=== PATIENT | male | born 1970 | race Caucasian/White ===

== ENCOUNTER 2019-11-19 13:42 | Inpatient (IN) | payer OTHER ==
[2019-11-19] MEDS ORDERED: Ondansetron INJ* 2 MG/ML VIAL IV ONE (14:05)
--- NOTE | 2019-11-19 14:08 | ED ---
HPI Diabetic - HPI Summary HPI Summary: This patient is a 49 y/o male presenting to [facility] via EMS from [facility] for nausea and vomiting. Patient is a type 1 diabetic who injects Insulin. He states for the past 2 days he has been having nausea and vomiting. Patient notes he has been unable to keep anything down, even water. Denies any other complaints. Denies fever, chest pain, shortness of breath. Per nurse's note, " Pt states his sugar have been low in the am, he would eat, and then be in 400s in afternoon." PMHx: type 1 DM, seizure. Patient has taken his seizure medications today, Keppra and Vimpat. Denies tobacco, alcohol, and drug use. Home Medications Medication Instructions Recorded Confirmed Type Insulin GLARGINE(*) [Lantus 100 26 units SUBCUT QAM 11/19/19 11/19/19 History units/ml 10 ml VIAL (*)] Insulin LISPRO* [HumaLOG 100 6 units SUBCUT .EVERY AFTERNOON 11/19/19 11/19/19 History units/ml 3 ml VIAL *] Insulin LISPRO* [HumaLOG 100 10 units SUBCUT QAM 11/19/19 11/19/19 History units/ml 3 ml VIAL *] Lacosamide TAB* [Vimpat TAB*] 200 mg PO BID 11/19/19 11/19/19 History Levetiracetam XR TAB(NF) [Keppra 1,500 mg PO BID 11/19/19 11/19/19 History XR (NF)] - History Of Current Complaint Chief Complaint: EDDiabeticProb Time Seen by Provider: 11/19/19 13:54 Hx Obtained From: Patient Onset/Duration: Lasting Days, Still Present Timing: Days Severity Currently: Moderate Character: Alert Aggravating: Nothing Alleviating: Nothing Associated Signs & Symptoms: Nausea, Vomiting Related History: Compliant, DM I, Insulin Requiring - Allergies/Home Medications Allergies/Adverse Reactions: Allergies Allergy/AdvReac Type Severity Reaction Status Date / Time No Known Allergies Allergy Verified 11/19/19 13:52 Home Medications: Home Medications Insulin GLARGINE(*) [Lantus 100 units/ml 10 ml VIAL (*)] 26 units SUBCUT QAM 11/08 [History Confirmed 11/19/19] Insulin LISPRO* [HumaLOG 100 units/ml 3 ml VIAL *] 6 units SUBCUT .EVERY AFTERNOON 11/19/19 [History Confirmed 11/19/19] Insulin LISPRO* [HumaLOG 100 units/ml 3 ml VIAL *] 10 units SUBCUT QAM 11/19/19 [History Confirmed 11/19/19] Lacosamide TAB* [Vimpat TAB*] 200 mg PO BID 11/19/19 [History Confirmed 11/19/19 ] Levetiracetam XR TAB(NF) [Keppra XR (NF)] 1,500 mg PO BID 11/19/19 [History Confirmed 11/19/19] PMH/Surg Hx/FS Hx/Imm Hx Endocrine/Hematology History: Reports: Hx Diabetes - Type 1 Neurological History: Reports: Hx Seizures Infectious Disease History: No Infectious Disease History: Denies: Traveled Outside the [place] in Last 30 Days - Family History Known Family History: Negative: Cardiac Disease - Social History Alcohol Use: None Substance Use Type: Reports: Marijuana Substance Use Comment - Amount & Last Used: last used 13 years ago Smoking Status (MU): Never Smoked Tobacco Review of Systems Negative: Fever Negative: Chest Pain Negative: Shortness Of Breath Positive: Vomiting, Nausea Neurological/Mental Status: Negative All Other Systems Reviewed And Are Negative: Yes Physical Exam - Summary Physical Exam Summary: VITAL SIGNS: Reviewed. GENERAL: Patient is a well-developed and nourished male who is lying comfortable in the stretcher. Patient is not in any acute respiratory distress. Patient appears dehydrated. HEAD AND FACE: No signs of trauma. No ecchymosis, hematomas or skull depressions. No sinus tenderness. EYES: PERRLA, EOMI x 2, No injected conjunctiva, no nystagmus. EARS: Hearing grossly intact. Ear canals and tympanic membranes are within normal limits. MOUTH: Oropharynx within normal limits. NECK: Supple, trachea is midline, no adenopathy, no JVD, no carotid bruit, no c- spine tenderness, neck with full ROM. CHEST: Symmetric, no tenderness at palpation LUNGS: Clear to auscultation bilaterally. No wheezing or crackles. CVS: Regular rate and rhythm, S1 and S2 present, no murmurs or gallops appreciated. ABDOMEN: Soft, non-tender. No signs of distention. No rebound, no guarding, and no masses palpated. Bowel sounds are normal. EXTREMITIES: FROM in all major joints, no edema, no cyanosis or clubbing. NEURO: Alert and oriented x 3. No acute neurological deficits. Speech is normal and follows commands. SKIN: Dry and warm Triage Information Reviewed: Yes Vital Signs On Initial Exam: Initial Vitals Pulse Pulse Ox 117 97 11/19/19 13:48 11/19/19 13:48 Vital Signs Reviewed: Yes Procedures - Sedation Patient Received Moderate/Deep Sedation with Procedure: No Diagnostics - Vital Signs Vital Signs Temp Pulse Resp BP Pulse Ox 11/19/19 13:49 99.8 F 112 20 126/82 99 11/19/19 13:48 117 97 - Laboratory Result Diagrams: 11/19/19 14:29 11/19/19 17:21 Lab Statement: Any lab studies that have been ordered have been reviewed, and results considered in the medical decision making process. Diabetic Course/Dx - Course Assessment/Plan: This patient is a 49 y/o male presenting to [facility] via EMS from [facility] for nausea and vomiting. Patient is a type 1 diabetic who injects Insulin. He states for the past 2 days he has been having nausea and vomiting. Patient notes he has been unable to keep anything down, even water. Denies any other complaints. Denies fever, chest pain, shortness of breath. Per nurse's note, "Pt states his sugar have been low in the am, he would eat, and then be in 400s in afternoon.". PMHx: type 1 DM, seizure. Patient has taken his seizure medications today, Keppra and Vimpat. Denies tobacco, alcohol, and drug use. In the ED course the patient was placed in a compliance monitor, IV access was obtained, IV fluids started. He was given 2 liter of Ns. Past medical records reviewed. Blood test w/o a significant abnormality except for WHITE BLOOD CELL COUNT OF 16, SODIUM 131, POTASSIUM 6, CHLORIDE 91, CARBON DIOXIDE IS 9, ANION GAP IS 31, BUN IS 37, CREATININE 1.38, GLUCOSE 545, LACTIC ACID IS 3.2. CRP IS 15.24. VBG: Ph is 7.13, and PCO2 28. Patient was started on insulin drip. The patient was given an additional liter of NS. Patient also was given Zofran for nausea and vomiting. At this time I discussed my physical exam and findings with Dr. Richardson from the ICU services who accepted the patient for admission. - Diagnoses Differential Dx: Diabetic Ketoacidosis, Hyperglycemia Provider Diagnoses: DKA, type 1 - Physician Notifications Discussed Care Of Patient With: Fermín Richardson - fabric cutter Time Discussed With Above Provider: 15:24 Instructed by Provider To: Admit As Inpatient - Critical Care Time Critical Care Time: 75-104 min Discharge ED - Sign-Out/Discharge Documenting (check all that apply): Patient Departure - Admit to [facility] [place] - Discharge Plan Condition: Stable Disposition: ADMITTED TO [facility] - Billing Disposition and Condition Condition: STABLE Disposition: Admitted to [facility] - Attestation Statements Document Initiated by Ninfaibjessica: Yes Documenting Scribe: Gris Alvarado Provider For Whom Mando is Documenting (Include Credential): Norbert Yoder MD Scribe Attestation: IGris, scribed for Norbert Yoder MD on 11/19/19 at 2054. Scribe Documentation Reviewed: Yes Provider Attestation: The documentation as recorded by the Gris rodriguez accurately reflects the service I personally performed and the decisions made by me, Norbert Yoder MD Status of Scribe Document: Viewed
[2019-11-19 14:43] LABS: ABS Lymphocytes 0.3 10^3/ul (1.0-4.8); ABS Monocytes 0.6 10^3/ul (0-0.8); Hematocrit 46 % (42-52); Lymphocyte % 2.1 %; Mean Corpuscular HGB Conc 33 g/dL (31-36); Mean Corpuscular Hemoglobin 31 pg (27-31); Mean Corpuscular Volume 94 fL (80-94); Mean Platelet Volume 9.6 fL (7.4-10.4); Platelet Count 314 10^3/uL (150-450); Red Blood Count 4.87 10^6 /uL (4.18-5.48); Red Cell Distribution Width 13 % (10-15)
[2019-11-19 14:58] LABS: Alcohol < 10 mg/dL (<10)
[2019-11-19 15:06] LABS: ALT 50 U/L (7-52); AST 35 U/L (13-39); Albumin 4.5 g/dL (3.2-5.2); Albumin/Globulin Ratio 1.4 (1-3); Alkaline Phosphatase 88 U/L (34-104); BUN/Creatinine Ratio 26.8 (8-20); Blood Urea Nitrogen 37 mg/dL (6-24); C Reactive Protein 15.24 mg/L (<8.01); Calcium 10.2 mg/dL (8.6-10.3); Chloride 91 mmol/L (101-111); Creatine Kinase 157 U/L (10-223); EGFR African American 66.3 (>60); EGFR Non-African American 54.8 (>60); Globulin 3.3 g/dL (2-4); Magnesium 2.1 mg/dL (1.9-2.7); Sodium 131 mmol/L (135-145); Total Protein 7.8 g/dL (6.4-8.9)
[2019-11-19 15:07] LABS: Anion Gap 31 mmol/L (2-11); CO2 Carbon Dioxide 9 mmol/L (22-32); Glucose 545 mg/dL (70-100)
[2019-11-19] MEDS: NS 0.9% 1000 ML** 2,000 ML IV ONE (15:14)
[2019-11-19] MEDS ORDERED: NS 0.9% 1000 ML** 1,000 ML IV ONE (15:20)
[2019-11-19 15:43] LABS: Urine Appearance Clear; Urine Bilirubin Negative (Negative); Urine Blood Negative (Negative); Urine Color Yellow; Urine Glucose 3+(>=500 mg/dL) (Negative); Urine Ketones 2+ (Negative); Urine Nitrite Negative (Negative); Urine Protein Negative (Negative); Urine Urobilinogen Negative (Negative)
[2019-11-19] MEDS ORDERED: Insulin Infusion 100unit/100mL 100 UNIT/100 ML BAG IV SCH (16:00)
[2019-11-19 16:36] LABS: Urine Benzodiazepine Screen None Detected (None Detect); Urine Opiates Screen None Detected (None Detect)
[2019-11-19] MEDS: Insulin Infusion 100unit/100mL 100 UNIT/100 ML BAG IV SCH (17:13)
[2019-11-19] MEDS ORDERED: NS 0.9% 1000 ML** 1,000 ML IV SCH (17:30)
[2019-11-19 18:11] LABS: Glucose Confirmatory 455 mg/dL (70-100)
[2019-11-19 18:31] LABS: BUN/Creatinine Ratio 28.1 (8-20); Blood Urea Nitrogen 34 mg/dL (6-24); Calcium 8.3 mg/dL (8.6-10.3); Chloride 103 mmol/L (101-111); EGFR African American 77.1 (>60); EGFR Non-African American 63.7 (>60); Sodium 136 mmol/L (135-145)
[2019-11-19 18:33] LABS: CO2 Carbon Dioxide < 7 mmol/L (22-32); Potassium 5.3 mmol/L (3.5-5.0)
--- NOTE | 2019-11-19 19:23 | HP ---
CRITICAL CARE ADMISSION NOTE: DATE OF ADMISSION: 11/19/19 HISTORY OF PRESENT ILLNESS: The patient is a 49-year-old male with past medical history of insulin-dependent diabetes and seizures, who presents to the emergency department with nausea and vomiting. He was found to be in diabetic ketoacidosis. ICU consultation was requested for his further workup and management at admission. On my arrival at the bedside, he is fairly comfortable. He has some mild ongoing nausea but is not actively vomiting. He has already received some insulin and a fair amount of fluid. He denies any localizing infection. Denies dysuria. Denies urethral discharge. Denies productive cough, fever, or chills. He reports he has been compliant with his diabetes regimen but as I asked him to describe it completely, it sounds like he may be under-replaced. PAST MEDICAL HISTORY: Significant for insulin-dependent diabetes and seizures. MEDICATIONS: Medication list includes: 1. Lantus 26 units q.a.m., 6 units of lispro every afternoon, 10 units of lispro in the morning. 2. Vimpat 200 mg p.o. b.i.d. 3. Keppra 1500 mg p.o. b.i.d. ALLERGIES: He denies any drug allergies. FAMILY HISTORY: He reports is negative for cardiac disease. SOCIAL HISTORY: He is currently incarcerated, not actively smoking or drinking. He was a remote drug user. He denies a history of hepatitis. REVIEW OF SYSTEMS: Detailed in the HPI. Additionally, he denies focal motor weakness, visual change, headache or neck stiffness. Denies hemoptysis or hematemesis. Denies diarrhea. Denies travel outside the [place] in the last 30 days. PHYSICAL EXAMINATION GENERAL: He is a well-developed, slight build white male, in no acute distress. VITAL SIGNS: Temperature of 99.8 degrees, heart rate of 110, respiratory rate of 20, blood pressure 126/80, saturating 99% on room air. HEENT: Normocephalic, atraumatic. Pupils equal, reactive to light. NECK: Supple, nontender, without JVD. LUNGS: Clear. HEART: S1, S2. Regular. ABDOMEN: Soft, nontender, nondistended. Positive bowel sounds. EXTREMITIES: Lower extremities are without edema. NEUROLOGIC: Alert and oriented and grossly nonfocal. LABORATORY DATA: Laboratory evaluation is revealing white blood cell count of 16, hemoglobin of 15, platelet count of 314. Serum sodium 131, potassium 6, chloride 91, bicarb 9, BUN and creatinine 37/1.38, with glucose of 545. Lactic acid of 3.2. Venous pH is 7.13. ASSESSMENT AND PLAN: This is a 49-year-old male with apparent diabetic ketoacidosis. He has no obvious precipitant, which leads me to compliance as the likely source. He is receiving appropriate crystalloid, we will add an insulin drip. We will perform serial screening of his anion gap which is currently 31, and I am hoping we can close that gap over the next 12 to 24 hours that he might be able to be discharged as soon as tomorrow. We will need to try and verify a little bit better whether he is actually taking the medications as prescribed because if he is, he may in fact need a dose adjustment. These all have been discussed in detail with the patient. He voiced understanding and appreciation for the care. TIME SPENT: The aggregate time providing critical care as well as personally interpreting multiple laboratory evaluations, reviewing the medical records, and discussing the case with other physicians including the attending in the ED Dr. Yoder has thus far exceeded 35 minutes. [id number]/[facility] #: [id number] UNITED HEALTH SERVICESClaudine
[2019-11-19] MEDS: D5NS 0.9% 1000 ML BAG* 1,000 ML IV SCH (21:25)
[2019-11-19 23:10] LABS: BUN/Creatinine Ratio 22.3 (8-20); Calcium 7.9 mg/dL (8.6-10.3); EGFR African American 84.3 (>60); EGFR Non-African American 69.7 (>60); Potassium 4.1 mmol/L (3.5-5.0)
[2019-11-19] MEDS: Heparin VIAL(*) 5000 UNITS/ML VIAL (FIVE THOUSAND) SUBCUT SCH (23:16)
[2019-11-19] MEDS: Lacosamide TAB* 100 MG TAB PO SCH (23:16)
[2019-11-19] MEDS: CMCS: Levetiracetam XR TAB(NF) 750 MG TAB.XR PO SCH (23:16)
[2019-11-20] MEDS: D5NS 0.9% 1000 ML BAG* 1,000 ML IV SCH (02:34)
[2019-11-20 03:09] LABS: BUN/Creatinine Ratio 19.6 (8-20); Calcium 7.8 mg/dL (8.6-10.3); EGFR African American 99.5 (>60); EGFR Non-African American 82.3 (>60); Potassium 3.5 mmol/L (3.5-5.0)
[2019-11-20] MEDS ORDERED: Insulin GLARGINE(*) 1 UNITS UNIT SUBCUT ONE (04:00)
[2019-11-20] MEDS: Insulin Infusion 100unit/100mL 100 UNIT/100 ML BAG IV SCH (04:26)
[2019-11-20] MEDS: Heparin VIAL(*) 5000 UNITS/ML VIAL (FIVE THOUSAND) SUBCUT SCH (05:04)
[2019-11-20] MEDS ORDERED: Dextrose 50% Syringe 50 ML* 25 GM/50 ML SYRINGE IV PUSH PRN (06:01)
[2019-11-20 07:02] LABS: BUN/Creatinine Ratio 16.8 (8-20); Calcium 7.7 mg/dL (8.6-10.3); EGFR Non-African American 78.5 (>60); Potassium 3.5 mmol/L (3.5-5.0)
[2019-11-20] MEDS: Insulin LISPRO* 1 UNITS UNIT SUBCUT SCH ×2 (07:45→12:09)
[2019-11-20] MEDS: CMCS: Levetiracetam XR TAB(NF) 750 MG TAB.XR PO SCH (10:28)
[2019-11-20] MEDS: Lacosamide TAB* 100 MG TAB PO SCH (10:28)
--- NOTE | 2019-11-20 12:07 | DS ---
DATE OF ADMISSION: 11/19/2019. DATE OF DISCHARGE: 11/20/2019. ATTENDING PHYSICIAN: Dr. Fermín Richardson * (dictated by Consuelo Mancia NP). PRIMARY CARE PHYSICIAN: Clinic at [facility]. REASON FOR ADMISSION: Vomiting times two days and hyperglycemia. HOSPITAL COURSE: Please refer to admitting history and physical on 11/19/[address] Fermín Richardson. In short, Mr. Edwards is a 49-year-old male patient who presented from custody at [facility] for complaints of hyperglycemia with nausea and vomiting times two days. The patient states that he did not have any further symptoms of upper respiratory infection or fever. The patient states that he is a type 1 diabetic and did understand that he may be in DKA. Upon arrival in the emergency department, he was found to have a markedly elevated sugar. He did have an anion gap which was 31. He was hyperkalemic and hyponatremic. At the time of admission, he was also found to be dehydrated secondary to diabetic ketoacidosis. He was admitted to the ICU for insulin drip protocol. He responded favorably to fluid resuscitation, receiving 3 liters of normal saline initially in the emergency department and was started on insulin drip at 0.1 units/kg per hour. The patient had BMP's check every four hours. The patient's GAP closed on his lab check at 2:45 in the morning. Insulin drip was stopped. The patient was maintained on IV fluids. Sugar has been normalized to around the 200 range by approximately 6: 00 a.m. this morning. He was started on his home regimen of glargine and lispro. He was tolerating meals. He did not exhibit any symptoms of nausea, vomiting, or diarrhea. The rest of his electrolytes subsequently corrected. The patient also did not exhibit any fevers or any other infectious symptoms. It should also be noted that the patient does have a history of seizure disorder. He was continued on his seizure medications which are Keppra and Vimpat. He did not exhibit any seizure activity during this stay. On the morning of 11/20/2019, the patient was feeling back to baseline. Again, his labs have normalized. His DKA has resolved and the patient will be discharged back to the custody of [facility]. There were no changes made to his medical regimen. He should follow-up at the clinic. DISPOSITION: The patient will be [facility] back [facility]. FOLLOW-UP: He should follow-up with clinic RN and medical staff. If the patient does not have a primary care provider in the community, he can be referred to the [facility] after he is no longer in custody. The patient should [facility] while he is still incarcerated. DISCHARGE MEDICATIONS: 1. Vimpat 200 mg one tablet p.o. b.i.d. 2. Keppra XR 1500 mg one tablet p.o. b.i.d. 3. Glargine 26 units subcutaneously daily. 4. Lispro 6 units subcutaneous in the afternoon and 10 units subcutaneous in the morning. REVIEW OF SYSTEMS ON THE DAY OF DISCHARGE: The patient denies any fever, fatigue, or chills. No general weakness. No cough. No shortness of breath, no chest pain. No nausea, vomiting, or diarrhea. No abdominal pain. No urinary complaints. No arthralgias or myalgias. No further constitutional complaints. PHYSICAL EXAMINATION: General: The patient is awake and alert, in general well - appearing. Vital Signs: Blood pressure 100/59, heart rate 90, respiratory rate 15, O2 saturation 95 percent on room air with a temperature of 98.4. HEENT : The patient is atraumatic, normocephalic. PERRLA. Nonicteric sclerae. Oral mucosa is moist. Tongue is midline. Neck: Supple, nontender. No JVD noted. No carotid bruit auscultated. Cardiovascular: S1, S2 present. Rate and rhythm are regular. No murmurs, gallops, or rubs noted. Abdomen: Soft, nontender, nondistended. Positive bowel sounds all quadrants. : Deferred. Musculoskeletal: There is no clubbing, no cyanosis, no edema. Full range of motion. Steady gait. Neurologic: Grossly intact with no focal deficits. Psychiatric: Cooperative and appropriate. LABORATORY DATA: Presenting labs: WBC 16.0, RBC 4.87, hemoglobin 15.0, hematocrit 46, platelets 314; sodium on 11/20/2019 135, potassium 3.5, chloride 110, CO2 21, anion gap 4, BUN 17, creatinine 1.01, GFR 78.5, BUN and creatinine ratio is 16.8, glucose 161, hemoglobin A1c is 8.2, magnesium 2.1, total bilirubin 0.70, AST 35, ALT 50, alk phos 88, creatinine kinase 157, CRP 15.24, total protein 7.8, albumin 4.5, globulin 3.3, albumin/globulin ratio 1.4, lipase 17. No imaging or EKG available. DISPOSITION: The patient was discharged to the custody of [facility] in stable condition. All questions were answered. The patient stated his understanding of the discharge instructions and follow-up. TIME SPENT: 35 minutes on discharge planning. CONSUELO MANCIA NP [id number]/[facility] #: [id number] [facility]
[2019-11-20 13:04] VITALS: BP 90/60
== END 2019-11-20 13:00 | DRG 420 ==
LOC: ED 13:42 → EEVIPCON 16:12 → ICU 16:12
PROVIDERS: ADMIT Internal Medicine Critical Care Medicine; ATTEND Internal Medicine Critical Care Medicine
DX: E10.11 Type 1 diabetes mellitus with ketoacidosis with coma (principal); E87.1 Hypo-osmolality and hyponatremia; E86.0 Dehydration; E87.5 Hyperkalemia; G40.909 Epilepsy, unspecified, not intractable, without status epilepticus; Z79.899 Other long term (current) drug therapy; Z79.4 Long term (current) use of insulin
CPT/HCPCS: 36415; 80048; 80053; 80307; 80320; 81003; 82550; 82803; 82947; 83036; 83605; 83690; 83735; 85025; 86140; 87641; 96374; 99285; G0480; J1644; J2405

== ENCOUNTER 2023-08-12 19:47 | Inpatient (IN) ==
[2023-08-13] MEDS ORDERED: Dextrose 50% Syringe 50 ml 25 GM/50 ML SYRINGE IV PUSH PRN (01:25)
[2023-08-13 13:30] LABS: ABS Lymphocytes 1.9 10^3/uL (1.0-4.8); ABS Monocytes 0.7 10^3/uL (0.0-1.1); ABS Neutrophils 3.4 10^3/uL (1.5-7.6); ABS Nucleated RBC 0.01 10^3/ul; Eosinophil % 0.8 %; Hematocrit 40.5 % (38-53); Hemoglobin 13.8 g/dL (13.2-16.3); Lymphocyte % 30.7 %; Mean Corpuscular Hemoglobin 30.9 pg (27-33); Mean Corpuscular Hgb Conc 34.2 g/dL (31-36); Mean Corpuscular Volume 90.4 fL (80-97); Mean Platelet Volume 8.8 fL (7.5-11.2); Nucleated Red Blood Cells % 0.1 %/100WBC (0.0-0.8); Platelet Count 244 10^3/uL (150-450); Red Blood Count 4.47 10^6/uL (4.06-5.63); Red Cell Distribution Width 12.6 % (12-17)
[2023-08-13] MEDS: Enoxaparin 40 MG/0.4 ML SYR SUBCUT SCH (13:47)
[2023-08-13 13:52] LABS: Albumin 3.7 g/dL (3.2-5.2); Albumin/Globulin Ratio 1.3 (1-3); Calcium 8.9 mg/dL (8.6-10.3); Creatinine, Serum 1.08 mg/dL (0.67-1.17); Globulin 2.9 g/dL (2-4); Potassium 4.1 mmol/L (3.5-5.0); Total Bilirubin 0.5 mg/dL (0.2-1.0); Total Protein 6.6 g/dL (6.4-8.9); eGFR CKD-EPI 82.6 (>60)
[2023-08-14] MEDS: Insulin GLARGINE 100 un/ml 10 ml VIAL SUBCUT SCH (01:35)
[2023-08-14] MEDS: Enoxaparin 40 MG/0.4 ML SYR SUBCUT SCH (13:35)
[2023-08-15] MEDS: Insulin GLARGINE 100 un/ml 10 ml VIAL SUBCUT SCH ×2 (04:27→22:42)
[2023-08-15] MEDS: Enoxaparin 40 MG/0.4 ML SYR SUBCUT SCH (11:44)
[2023-08-16] MEDS: Insulin GLARGINE 100 un/ml 10 ml VIAL SUBCUT SCH (08:58)
[2023-08-16] MEDS: Enoxaparin 40 MG/0.4 ML SYR SUBCUT SCH (12:04)
[2023-08-17] MEDS: Insulin GLARGINE 100 un/ml 10 ml VIAL SUBCUT SCH (09:07)
[2023-08-17] MEDS: Enoxaparin 40 MG/0.4 ML SYR SUBCUT SCH (12:46)
[2023-08-18] MEDS: Insulin GLARGINE 100 un/ml 10 ml VIAL SUBCUT SCH (09:06)
[2023-08-18] MEDS: Enoxaparin 40 MG/0.4 ML SYR SUBCUT SCH (12:11)
[2023-08-19] MEDS: Insulin GLARGINE 100 un/ml 10 ml VIAL SUBCUT SCH (09:11)
[2023-08-19] MEDS: Enoxaparin 40 MG/0.4 ML SYR SUBCUT SCH (12:46)
[2023-08-20] MEDS: Insulin GLARGINE 100 un/ml 10 ml VIAL SUBCUT SCH (09:39)
[2023-08-20] MEDS: Enoxaparin 40 MG/0.4 ML SYR SUBCUT SCH (12:36)
[2023-08-21] MEDS: Insulin GLARGINE 100 un/ml 10 ml VIAL SUBCUT SCH (08:40)
[2023-08-21] MEDS: Enoxaparin 40 MG/0.4 ML SYR SUBCUT SCH (11:26)
[2023-08-22] MEDS: Insulin GLARGINE 100 un/ml 10 ml VIAL SUBCUT SCH (08:18)
[2023-08-22] MEDS: Enoxaparin 40 MG/0.4 ML SYR SUBCUT SCH (11:59)
[2023-08-23] MEDS: Insulin GLARGINE 100 un/ml 10 ml VIAL SUBCUT SCH (08:42)
[2023-08-23] MEDS: Enoxaparin 40 MG/0.4 ML SYR SUBCUT SCH (12:30)
[2023-08-24] MEDS: Senna TAB 8.6 mg TAB PO SCH (10:04)
[2023-08-24] MEDS: Insulin GLARGINE 100 un/ml 10 ml VIAL SUBCUT SCH (10:04)
[2023-08-24] MEDS: Polyethylene Glycol 3350 17 GM PACKET PO SCH (10:07)
[2023-08-24] MEDS: Enoxaparin 40 MG/0.4 ML SYR SUBCUT SCH (13:02)
[2023-08-25] MEDS: Polyethylene Glycol 3350 17 GM PACKET PO SCH (09:01)
[2023-08-25] MEDS: Insulin GLARGINE 100 un/ml 10 ml VIAL SUBCUT SCH (09:02)
[2023-08-25] MEDS: Senna TAB 8.6 mg TAB PO SCH (09:03)
[2023-08-25] MEDS: Enoxaparin 40 MG/0.4 ML SYR SUBCUT SCH (12:39)
[2023-08-26] MEDS: Insulin GLARGINE 100 un/ml 10 ml VIAL SUBCUT SCH (09:16)
[2023-08-26] MEDS: Senna TAB 8.6 mg TAB PO SCH (09:16)
[2023-08-26] MEDS: Polyethylene Glycol 3350 17 GM PACKET PO SCH (09:17)
[2023-08-26] MEDS: Enoxaparin 40 MG/0.4 ML SYR SUBCUT SCH (12:27)
[2023-08-27] MEDS: Polyethylene Glycol 3350 17 GM PACKET PO SCH (08:50)
[2023-08-27] MEDS: Senna TAB 8.6 mg TAB PO SCH (08:50)
[2023-08-27] MEDS: Insulin GLARGINE 100 un/ml 10 ml VIAL SUBCUT SCH (08:51)
[2023-08-27] MEDS: Enoxaparin 40 MG/0.4 ML SYR SUBCUT SCH (12:47)
[2023-08-27] MEDS: Dextrose 50% Syringe 50 ml 25 GM/50 ML SYRINGE IV PUSH PRN (16:59)
[2023-08-28] MEDS: Polyethylene Glycol 3350 17 GM PACKET PO SCH (08:54)
[2023-08-28] MEDS: Senna TAB 8.6 mg TAB PO SCH (08:54)
[2023-08-28] MEDS ORDERED: Insulin GLARGINE 100 un/ml 10 ml VIAL SUBCUT SCH (09:00)
[2023-08-28] MEDS: Enoxaparin 40 MG/0.4 ML SYR SUBCUT SCH (12:46)
[2023-08-28] MEDS: Dextrose 50% Syringe 50 ml 25 GM/50 ML SYRINGE IV PUSH PRN (16:51)
[2023-08-29] MEDS: Senna TAB 8.6 mg TAB PO SCH (10:26)
[2023-08-29] MEDS: Insulin GLARGINE 100 un/ml 10 ml VIAL SUBCUT SCH (10:29)
[2023-08-29] MEDS: Polyethylene Glycol 3350 17 GM PACKET PO SCH (10:36)
[2023-08-29] MEDS: Enoxaparin 40 MG/0.4 ML SYR SUBCUT SCH (12:51)
[2023-08-30] MEDS: Insulin GLARGINE 100 un/ml 10 ml VIAL SUBCUT SCH (09:47)
[2023-08-30] MEDS: Senna TAB 8.6 mg TAB PO SCH (09:49)
[2023-08-30] MEDS: Polyethylene Glycol 3350 17 GM PACKET PO SCH (09:51)
[2023-08-30] MEDS: Enoxaparin 40 MG/0.4 ML SYR SUBCUT SCH (12:51)
[2023-08-31] MEDS: Insulin GLARGINE 100 un/ml 10 ml VIAL SUBCUT SCH (08:35)
[2023-08-31] MEDS: Polyethylene Glycol 3350 17 GM PACKET PO SCH (08:36)
[2023-08-31] MEDS: Senna TAB 8.6 mg TAB PO SCH (08:36)
[2023-08-31] MEDS: Enoxaparin 40 MG/0.4 ML SYR SUBCUT SCH (12:16)
[2023-09-01] MEDS: Insulin GLARGINE 100 un/ml 10 ml VIAL SUBCUT SCH (08:41)
[2023-09-01] MEDS: Polyethylene Glycol 3350 17 GM PACKET PO SCH (08:43)
[2023-09-01] MEDS: Senna TAB 8.6 mg TAB PO SCH (08:43)
[2023-09-01] MEDS: Enoxaparin 40 MG/0.4 ML SYR SUBCUT SCH (12:37)
[2023-09-02] MEDS: Insulin GLARGINE 100 un/ml 10 ml VIAL SUBCUT SCH (08:16)
[2023-09-02] MEDS: Polyethylene Glycol 3350 17 GM PACKET PO SCH (08:16)
[2023-09-02] MEDS: Senna TAB 8.6 mg TAB PO SCH (08:17)
[2023-09-02] MEDS: Enoxaparin 40 MG/0.4 ML SYR SUBCUT SCH (12:14)
[2023-09-03] MEDS: Polyethylene Glycol 3350 17 GM PACKET PO SCH (09:16)
[2023-09-03] MEDS: Insulin GLARGINE 100 un/ml 10 ml VIAL SUBCUT SCH (09:16)
[2023-09-03] MEDS: Senna TAB 8.6 mg TAB PO SCH (09:16)
[2023-09-03] MEDS: Enoxaparin 40 MG/0.4 ML SYR SUBCUT SCH (12:53)
[2023-09-04] MEDS: Polyethylene Glycol 3350 17 GM PACKET PO SCH (08:50)
[2023-09-04] MEDS: Insulin GLARGINE 100 un/ml 10 ml VIAL SUBCUT SCH (08:50)
[2023-09-04] MEDS: Senna TAB 8.6 mg TAB PO SCH (08:51)
[2023-09-04] MEDS: Enoxaparin 40 MG/0.4 ML SYR SUBCUT SCH (13:48)
[2023-09-05] MEDS: Insulin GLARGINE 100 un/ml 10 ml VIAL SUBCUT SCH (08:42)
[2023-09-05] MEDS: Polyethylene Glycol 3350 17 GM PACKET PO SCH (09:20)
[2023-09-05] MEDS: Senna TAB 8.6 mg TAB PO SCH (11:13)
[2023-09-05 11:14] VITALS: BP 125/81
[2023-09-05] MEDS: Enoxaparin 40 MG/0.4 ML SYR SUBCUT SCH (12:06)
== END 2023-09-05 13:12 | disposition short-term general hospital (02) | DRG 637 ==
LOC: ED 19:47 → SUATTDRO 08-15 18:50 → EDHOLD 08-15 18:50 → MED 08-15 20:21
PROVIDERS: ADMIT Hospitalist; ATTEND Internal Medicine

== ENCOUNTER 2023-09-05 13:20 | Observation (INO) ==
[2023-09-05] MEDS ORDERED: Ondansetron 4 mg VIAL 2 MG/ML 2 ml VIAL IV PRN (13:25)
[2023-09-05] MEDS ORDERED: Dextrose 50% Syringe 50 ml 25 GM/50 ML SYRINGE IV PUSH PRN (13:36)
[2023-09-05 14:34] LABS: ABS Basophils 0.1 10^3/uL (0.0-0.1); ABS Lymphocytes 1.4 10^3/uL (1.0-4.8); ABS Monocytes 1.1 10^3/uL (0.0-1.1); ABS Neutrophils 5.9 10^3/uL (1.5-7.6); Hematocrit 41.3 % (38-53); Hemoglobin 13.9 g/dL (13.2-16.3); Lymphocyte % 16.8 %; Mean Corpuscular Hemoglobin 30.9 pg (27-33); Mean Corpuscular Hgb Conc 33.8 g/dL (31-36); Mean Corpuscular Volume 91.3 fL (80-97); Mean Platelet Volume 9.7 fL (7.5-11.2); Platelet Count 269 10^3/uL (150-450); Red Blood Count 4.52 10^6/uL (4.06-5.63); Red Cell Distribution Width 12.9 % (12-17); White Blood Count 8.5 10^3/uL (3.6-10.2)
[2023-09-05 14:48] LABS: Activated Partial Thrombo Time 35.9 seconds (26.0-38.0); INR 1.12 (0.83-1.13)
[2023-09-05 14:52] LABS: Albumin 3.8 g/dL (3.2-5.2); Albumin/Globulin Ratio 1.3 (1-3); C Reactive Protein 41.03 mg/L (<8.01); Calcium 8.6 mg/dL (8.6-10.3); Creatinine, Serum 0.91 mg/dL (0.67-1.17); Magnesium 1.9 mg/dL (1.9-2.7); Total Bilirubin 0.2 mg/dL (0.2-1.0); Total Protein 6.8 g/dL (6.4-8.9); eGFR CKD-EPI 101.4 (>60)
[2023-09-05] MEDS ORDERED: Remdesivir 100 mg Vial 200 MG in NS 0.9% 250 ml 210 ML IV ONE (18:38)
[2023-09-05] MEDS ORDERED: D5W 500 ml BAG 500 ML IV SCH (19:00)
[2023-09-06 06:43] LABS: ABS Lymphocytes 1.7 10^3/uL (1.0-4.8); ABS Monocytes 1.1 10^3/uL (0.0-1.1); ABS Neutrophils 4.9 10^3/uL (1.5-7.6); Eosinophil % 0.1 %; Hematocrit 42.8 % (38-53); Hemoglobin 14.5 g/dL (13.2-16.3); Lymphocyte % 22.1 %; Mean Corpuscular Hemoglobin 30.9 pg (27-33); Mean Corpuscular Hgb Conc 33.8 g/dL (31-36); Mean Corpuscular Volume 91.5 fL (80-97); Mean Platelet Volume 9.4 fL (7.5-11.2); Platelet Count 224 10^3/uL (150-450); Red Blood Count 4.68 10^6/uL (4.06-5.63); Red Cell Distribution Width 13.2 % (12-17); White Blood Count 7.7 10^3/uL (3.6-10.2)
[2023-09-06 07:09] LABS: INR 1.1 (0.83-1.13)
[2023-09-06 08:20] LABS: Albumin 3.6 g/dL (3.2-5.2); Albumin/Globulin Ratio 1.2 (1-3); Calcium 8.4 mg/dL (8.6-10.3); Creatinine, Serum 0.94 mg/dL (0.67-1.17); Magnesium 1.9 mg/dL (1.9-2.7); Potassium 3.8 mmol/L (3.5-5.0); Total Bilirubin 0.2 mg/dL (0.2-1.0); Total Protein 6.6 g/dL (6.4-8.9); eGFR CKD-EPI 97.5 (>60)
[2023-09-06] MEDS ORDERED: Insulin GLARGINE 100 un/ml 10 ml VIAL SUBCUT SCH (09:00)
[2023-09-06] MEDS: Polyethylene Glycol 3350 17 GM PACKET PO SCH (10:02)
[2023-09-06] MEDS: Senna TAB 8.6 mg TAB PO SCH (10:02)
[2023-09-06] MEDS: Enoxaparin 40 MG/0.4 ML SYR SUBCUT SCH (13:07)
[2023-09-06] MEDS: Remdesivir 100 mg Vial 100 MG in NS 0.9% 250 ml 230 ML IV SCH (20:27)
[2023-09-07 07:49] LABS: ABS Basophils 0.1 10^3/uL (0.0-0.1); ABS Eosinophils 0.1 10^3/uL (0.0-0.5); ABS Monocytes 0.6 10^3/uL (0.0-1.1); ABS Neutrophils 2.2 10^3/uL (1.5-7.6); ABS Nucleated RBC 0.01 10^3/ul; Eosinophil % 2.7 %; Hematocrit 44.2 % (38-53); Hemoglobin 14.9 g/dL (13.2-16.3); Lymphocyte % 40.3 %; Mean Corpuscular Hgb Conc 33.7 g/dL (31-36); Mean Platelet Volume 9.4 fL (7.5-11.2); Nucleated Red Blood Cells % 0.2 %/100WBC (0.0-0.8); Platelet Count 237 10^3/uL (150-450); Red Blood Count 4.81 10^6/uL (4.06-5.63); White Blood Count 4.9 10^3/uL (3.6-10.2)
[2023-09-07 07:59] LABS: INR 1.03 (0.83-1.13)
[2023-09-07 08:09] LABS: Albumin 3.7 g/dL (3.2-5.2); Albumin/Globulin Ratio 1.2 (1-3); Calcium 8.9 mg/dL (8.6-10.3); Creatinine, Serum 0.99 mg/dL (0.67-1.17); Globulin 3.2 g/dL (2-4); Magnesium 1.8 mg/dL (1.9-2.7); Potassium 4.6 mmol/L (3.5-5.0); Total Bilirubin 0.2 mg/dL (0.2-1.0); Total Protein 6.9 g/dL (6.4-8.9); eGFR CKD-EPI 91.7 (>60)
[2023-09-07] MEDS: Senna TAB 8.6 mg TAB PO SCH (09:52)
[2023-09-07] MEDS: Polyethylene Glycol 3350 17 GM PACKET PO SCH (09:52)
[2023-09-07] MEDS ORDERED: Magnesium Sulfate 2 gm BAG 2 GM/50 ML BAG IVPB ONE (10:13)
[2023-09-07] MEDS: Enoxaparin 40 MG/0.4 ML SYR SUBCUT SCH (11:34)
[2023-09-07] MEDS: Remdesivir 100 mg Vial 100 MG in NS 0.9% 250 ml 230 ML IV SCH (20:50)
[2023-09-08 06:09] VITALS: BP 102/69
[2023-09-08] MEDS: Polyethylene Glycol 3350 17 GM PACKET PO SCH (08:36)
[2023-09-08] MEDS: Senna TAB 8.6 mg TAB PO SCH (08:37)
[2023-09-08] MEDS ORDERED: Insulin GLARGINE 100 un/ml 10 ml VIAL SUBCUT SCH (09:00)
[2023-09-08 10:21] LABS: INR 1.09 (0.83-1.13)
[2023-09-08 10:41] LABS: Albumin 3.9 g/dL (3.2-5.2); Albumin/Globulin Ratio 1.2 (1-3); Creatinine, Serum 0.98 mg/dL (0.67-1.17); Globulin 3.2 g/dL (2-4); Potassium 4.4 mmol/L (3.5-5.0); Total Bilirubin 0.4 mg/dL (0.2-1.0); Total Protein 7.1 g/dL (6.4-8.9); eGFR CKD-EPI 92.8 (>60)
== END 2023-09-08 10:17 | disposition short-term general hospital (02) ==
LOC: MED → SUATTDRO 13:20
PROVIDERS: ADMIT Internal Medicine; ATTEND Internal Medicine

== ENCOUNTER 2023-09-08 09:00 | Inpatient (IN) ==
[2023-09-08] MEDS ORDERED: Dextrose 50% Syringe 50 ml 25 GM/50 ML SYRINGE IV PUSH PRN (12:23)
[2023-09-09] MEDS: Polyethylene Glycol 3350 17 GM PACKET PO SCH (08:51)
[2023-09-09] MEDS: Senna TAB 8.6 mg TAB PO SCH (08:51)
[2023-09-09] MEDS: Insulin GLARGINE 100 un/ml 10 ml VIAL SUBCUT SCH (08:52)
[2023-09-10] MEDS: Insulin GLARGINE 100 un/ml 10 ml VIAL SUBCUT SCH (08:03)
[2023-09-10] MEDS: Polyethylene Glycol 3350 17 GM PACKET PO SCH (08:05)
[2023-09-10] MEDS: Senna TAB 8.6 mg TAB PO SCH (08:06)
[2023-09-11] MEDS: Insulin GLARGINE 100 un/ml 10 ml VIAL SUBCUT SCH (07:51)
[2023-09-11] MEDS: Polyethylene Glycol 3350 17 GM PACKET PO SCH (10:31)
[2023-09-11] MEDS: Senna TAB 8.6 mg TAB PO SCH (10:31)
[2023-09-12] MEDS ORDERED: LORazepam 2 mg VIAL 1 ml IV PUSH ONE ×2 (08:59→09:12)
[2023-09-12] MEDS ORDERED: Lorazepam PYXIS KEY PRN ×2 (08:59→09:11)
[2023-09-12] MEDS ORDERED: LORazepam 2 mg VIAL 1 ml ONE (08:59)
[2023-09-12] MEDS: Insulin GLARGINE 100 un/ml 10 ml VIAL SUBCUT SCH ×2 (09:09→11:26)
[2023-09-12] MEDS: Polyethylene Glycol 3350 17 GM PACKET PO SCH (12:30)
[2023-09-12] MEDS: Senna TAB 8.6 mg TAB PO SCH (12:30)
[2023-09-13] MEDS: Senna TAB 8.6 mg TAB PO SCH (08:29)
[2023-09-13] MEDS: Polyethylene Glycol 3350 17 GM PACKET PO SCH (08:29)
[2023-09-13 08:34] VITALS: BP 127/80
== END 2023-09-13 10:58 | disposition short-term general hospital (02) | DRG 70 ==
LOC: MED → SUATTDRO 09:00 → OBSVTOIN 10:23 → MED 23:25
PROVIDERS: ADMIT Internal Medicine; ATTEND Internal Medicine

== ENCOUNTER 2023-09-13 11:03 | Observation (INO) ==
[2023-09-13] MEDS ORDERED: Polyethylene Glycol 3350 17 GM PACKET PO PRN (11:19)
[2023-09-13] MEDS ORDERED: Al Hydrox/Mg Hydrox/Simet LIQ 30 ML UDC PO PRN (11:19)
[2023-09-13] MEDS ORDERED: NS 0.9% 1000 ml BAG 1,000 ML IV SCH (11:30)
[2023-09-13] MEDS ORDERED: Dextrose 50% Syringe 50 ml 25 GM/50 ML SYRINGE IV PUSH PRN (12:34)
[2023-09-13 13:59] LABS: ABS Basophils 0.1 10^3/uL (0.0-0.1); ABS Eosinophils 0.1 10^3/uL (0.0-0.5); ABS Lymphocytes 2.8 10^3/uL (1.0-4.8); ABS Monocytes 0.7 10^3/uL (0.0-1.1); ABS Neutrophils 4.2 10^3/uL (1.5-7.6); ABS Nucleated RBC 0.01 10^3/ul; Eosinophil % 1.8 %; Hematocrit 45.8 % (38-53); Hemoglobin 15.2 g/dL (13.2-16.3); Lymphocyte % 35.2 %; Mean Corpuscular Hemoglobin 30.5 pg (27-33); Mean Corpuscular Hgb Conc 33.2 g/dL (31-36); Mean Corpuscular Volume 91.9 fL (80-97); Nucleated Red Blood Cells % 0.1 %/100WBC (0.0-0.8); Red Blood Count 4.98 10^6/uL (4.06-5.63); Red Cell Distribution Width 12.9 % (12-17); White Blood Count 7.8 10^3/uL (3.6-10.2)
[2023-09-13 14:05] LABS: Albumin 3.8 g/dL (3.2-5.2); Albumin/Globulin Ratio 1.2 (1-3); C Reactive Protein 12.31 mg/L (<8.01); Calcium 9.2 mg/dL (8.6-10.3); Creatinine, Serum 0.86 mg/dL (0.67-1.17); Globulin 3.1 g/dL (2-4); Potassium 4.2 mmol/L (3.5-5.0); Total Bilirubin 0.4 mg/dL (0.2-1.0); Total Protein 6.9 g/dL (6.4-8.9); eGFR CKD-EPI 104.2 (>60)
[2023-09-13 14:21] LABS: Mean Platelet Volume 9.8 fL (7.5-11.2); Platelet Count 240 10^3/uL (150-450)
[2023-09-14] MEDS ORDERED: Insulin GLARGINE 100 un/ml 10 ml VIAL SUBCUT SCH (09:00)
[2023-09-14] MEDS ORDERED: Polyethylene Glycol 3350 17 GM PACKET PO SCH (09:00)
[2023-09-14 10:12] VITALS: BP 102/68
== END 2023-09-14 10:16 | disposition home or self-care (01) ==
LOC: MED
PROVIDERS: ADMIT Internal Medicine; ATTEND Internal Medicine

== ENCOUNTER 2023-09-14 10:50 | Inpatient (IN) ==
[2023-09-14] MEDS ORDERED: Al Hydrox/Mg Hydrox/Simet LIQ 30 ML UDC PO PRN (12:02)
[2023-09-14] MEDS ORDERED: Polyethylene Glycol 3350 17 GM PACKET PO PRN (12:02)
[2023-09-14] MEDS: Enoxaparin 40 MG/0.4 ML SYR SUBCUT SCH (12:43)
[2023-09-15] MEDS: Insulin GLARGINE 100 un/ml 10 ml VIAL SUBCUT SCH (08:49)
[2023-09-15] MEDS: Polyethylene Glycol 3350 17 GM PACKET PO SCH (09:06)
[2023-09-15] MEDS: Senna TAB 8.6 mg TAB PO SCH (09:06)
[2023-10-02 02:28] LABS: Urine Appearance Clear; Urine Bilirubin Negative (Negative); Urine Blood Negative (Negative); Urine Color Yellow; Urine Glucose 1+(50 mg/dL) (Negative); Urine Ketones 1+ (Negative); Urine Nitrite Negative (Negative); Urine Protein Negative (Negative); Urine Specific Gravity 1.031 (1.002-1.030); Urine Urobilinogen Negative (Negative)
[2023-10-04] MEDS ORDERED: Dextrose 50% Syringe 50 ml 25 GM/50 ML SYRINGE IV PUSH ONE (11:17)
[2023-10-04] MEDS: Glucose ORAL 15 GM TUBE PO ONE (11:37)
[2023-10-05] MEDS: Insulin GLARGINE 100 un/ml 10 ml VIAL SUBCUT SCH (10:04)
[2023-10-11] MEDS: Insulin GLARGINE 100 un/ml 10 ml VIAL SUBCUT SCH (07:39)
[2023-10-14 12:48] LABS: Glucose Confirmatory 408 mg/dL (70-100)
[2023-10-19] MEDS: Dextrose 50% Syringe 50 ml 25 GM/50 ML SYRINGE IV PUSH PRN (07:49)
[2023-10-20 17:20] LABS: Glucose Confirmatory 409 mg/dL (70-100)
[2023-10-23] MEDS: Insulin GLARGINE 100 un/ml 10 ml VIAL SUBCUT SCH (09:19)
[2023-10-28] MEDS: Glucose ORAL 15 GM TUBE PO PRN (07:36)
[2023-11-01] MEDS: Insulin GLARGINE 100 un/ml 10 ml VIAL SUBCUT SCH (09:53)
[2023-11-01] MEDS ORDERED: Dextrose 50% Syringe 50 ml 25 GM/50 ML SYRINGE IV PUSH PRN (18:18)
[2023-11-03] MEDS: Insulin GLARGINE 100 un/ml 10 ml VIAL SUBCUT SCH (08:17)
[2023-11-05 10:15] LABS: ABS Basophils 0.1 10^3/uL (0.0-0.1); ABS Eosinophils 0.1 10^3/uL (0.0-0.5); ABS Monocytes 0.5 10^3/uL (0.0-1.1); ABS Neutrophils 4.3 10^3/uL (1.5-7.6); ABS Nucleated RBC 0.01 10^3/ul; Eosinophil % 1.2 %; Hematocrit 41.5 % (38-53); Hemoglobin 14.4 g/dL (13.2-16.3); Lymphocyte % 29.4 %; Mean Corpuscular Hemoglobin 31.3 pg (27-33); Mean Corpuscular Hgb Conc 34.6 g/dL (31-36); Mean Corpuscular Volume 90.4 fL (80-97); Mean Platelet Volume 8.9 fL (7.5-11.2); Nucleated Red Blood Cells % 0.1 %/100WBC (0.0-0.8); Platelet Count 280 10^3/uL (150-450); Red Cell Distribution Width 13.9 % (12-17)
[2023-11-05 10:30] LABS: Calcium 8.8 mg/dL (8.6-10.3); Creatinine, Serum 0.83 mg/dL (0.67-1.17); eGFR CKD-EPI 105.3 (>60)
[2023-11-10 12:37] LABS: Glucose Confirmatory 458 mg/dL (70-100)
[2023-11-10] MEDS ORDERED: Dextrose 50% Syringe 50 ml 25 GM/50 ML SYRINGE IV PUSH PRN (14:47)
[2023-11-10 15:47] LABS: Glucose Confirmatory 402 mg/dL (70-100)
[2023-11-11] MEDS: levETIRAcetam 500 MG IVPREMIX 500 MG/100 ML BAG IV ONE (23:04)
[2023-11-11] MEDS: levETIRAcetam IV 1,500 MG in NS 0.9% 100 ml BAG 100 ML IVPB ONE (23:45)
[2023-11-13] MEDS: Glucose ORAL 15 GM TUBE PO PRN (08:26)
[2023-11-13] MEDS: Insulin GLARGINE 100 un/ml 10 ml VIAL SUBCUT SCH (12:40)
[2023-11-22 19:56] LABS: Hematocrit 40.9 % (38-53); Hemoglobin 13.6 g/dL (13.2-16.3); Mean Corpuscular Hemoglobin 30.5 pg (27-33); Mean Corpuscular Hgb Conc 33.3 g/dL (31-36); Mean Corpuscular Volume 91.6 fL (80-97); Mean Platelet Volume 9.3 fL (7.5-11.2); Platelet Count 270 10^3/uL (150-450); Red Blood Count 4.46 10^6/uL (4.06-5.63); Red Cell Distribution Width 13.5 % (12-17); White Blood Count 15.5 10^3/uL (3.6-10.2)
[2023-11-22 20:15] LABS: ABS Basophils 0.1 10^3/uL (0.0-0.1); ABS Monocytes 1.6 10^3/uL (0.0-1.1); ABS Neutrophils 11.9 10^3/uL (1.5-7.6); ABS Nucleated RBC 0.01 10^3/ul; Eosinophil % 0.1 %; Lymphocyte % 12.7 %; Nucleated Red Blood Cells % 0.1 %/100WBC (0.0-0.8); RBC Morphology Normal (Normal)
[2023-11-22 21:09] LABS: Calcium 9.3 mg/dL (8.6-10.3); Creatinine, Serum 0.85 mg/dL (0.67-1.17); Potassium 4.3 mmol/L (3.5-5.0); eGFR CKD-EPI 103.9 (>60)
[2023-11-23 02:55] LABS: Urine Appearance Clear; Urine Bilirubin Negative (Negative); Urine Blood Negative (Negative); Urine Color Yellow; Urine Glucose Trace (Negative); Urine Ketones 4+ (Negative); Urine Nitrite 2+ (Negative); Urine Protein 1+ (>=30 mg/dL) (Negative); Urine Specific Gravity 1.034 (1.002-1.030); Urine Urobilinogen Negative (Negative); Urine pH 6.5 (5.0-8.0)
[2023-11-23 03:05] LABS: Urine Bacteria 1+ /HPF (Absent); Urine Red Blood Cell Absent /HPF (0-Trace); Urine Squamous Epithelial Cell Present /HPF (Absent); Urine White Blood Cell 2+(11-20/hpf) /HPF (0-Trace)
[2023-11-23 05:11] VITALS: BP 101/61
== END 2023-11-23 18:34 | disposition short-term general hospital (02) | DRG 53 ==
LOC: MED 10:50 → SUATTDRO 10:50 → MED 10-12 21:09 → UNDODISIN 11-23 18:29
PROVIDERS: ADMIT Internal Medicine; ATTEND Internal Medicine

== ENCOUNTER 2023-11-23 18:35 | Observation (INO) ==
[2023-11-23] MEDS ORDERED: Al Hydrox/Mg Hydrox/Simet LIQ 30 ML UDC PO PRN (19:17)
[2023-11-23] MEDS ORDERED: Glucose ORAL 15 GM TUBE PO ONE (19:40)
[2023-11-23] MEDS ORDERED: Dextrose 50% Syringe 50 ml 25 GM/50 ML SYRINGE IV PUSH PRN (19:50)
[2023-11-23 20:08] LABS: ABS Basophils 0.1 10^3/uL (0.0-0.1); ABS Lymphocytes 2.1 10^3/uL (1.0-4.8); ABS Monocytes 1.5 10^3/uL (0.0-1.1); ABS Neutrophils 12.3 10^3/uL (1.5-7.6); ABS Nucleated RBC 0.01 10^3/ul; Eosinophil % 0.1 %; Hematocrit 36.8 % (38-53); Hemoglobin 12.3 g/dL (13.2-16.3); Mean Corpuscular Hemoglobin 30.7 pg (27-33); Mean Corpuscular Hgb Conc 33.6 g/dL (31-36); Mean Corpuscular Volume 91.5 fL (80-97); Mean Platelet Volume 9.1 fL (7.5-11.2); Platelet Count 239 10^3/uL (150-450); Red Blood Count 4.02 10^6/uL (4.06-5.63); Red Cell Distribution Width 13.6 % (12-17)
[2023-11-23] MEDS: Glucose ORAL 15 GM TUBE PO ONE (20:23)
[2023-11-23 20:34] LABS: Albumin 3.5 g/dL (3.2-5.2); Albumin/Globulin Ratio 1.3 (1-3); Creatinine, Serum 0.84 mg/dL (0.67-1.17); Globulin 2.7 g/dL (2-4); Potassium 3.9 mmol/L (3.5-5.0); Total Bilirubin 0.6 mg/dL (0.2-1.0); Total Protein 6.2 g/dL (6.4-8.9); eGFR CKD-EPI 104.3 (>60)
[2023-11-23] MEDS ORDERED: Lorazepam PYXIS KEY PRN ×3 (21:13→21:19)
[2023-11-23] MEDS: LORazepam 2 mg VIAL 1 ml IV PUSH ONE ×2 (21:15→21:30)
[2023-11-23] MEDS ORDERED: LORazepam 2 mg VIAL 1 ml IM ONE (21:19)
[2023-11-23] MEDS: LORazepam 2 mg VIAL 1 ml IM ONE (21:31)
[2023-11-23] MEDS: NS 0.9% 1000 ml BAG 1,000 ML IV SCH (23:34)
[2023-11-24] MEDS: Insulin GLARGINE 100 un/ml 10 ml VIAL SUBCUT SCH (07:46)
[2023-11-24 08:22] LABS: ABS Basophils 0.1 10^3/uL (0.0-0.1); ABS Lymphocytes 1.6 10^3/uL (1.0-4.8); ABS Monocytes 0.9 10^3/uL (0.0-1.1); ABS Neutrophils 7.7 10^3/uL (1.5-7.6); Eosinophil % 0.2 %; Hematocrit 34.7 % (38-53); Hemoglobin 11.7 g/dL (13.2-16.3); Lymphocyte % 15.3 %; Mean Corpuscular Hemoglobin 30.7 pg (27-33); Mean Corpuscular Hgb Conc 33.7 g/dL (31-36); Mean Corpuscular Volume 91.1 fL (80-97); Mean Platelet Volume 8.9 fL (7.5-11.2); Platelet Count 210 10^3/uL (150-450); Red Blood Count 3.81 10^6/uL (4.06-5.63); Red Cell Distribution Width 13.4 % (12-17); White Blood Count 10.3 10^3/uL (3.6-10.2)
[2023-11-24 08:57] LABS: Calcium 8.3 mg/dL (8.6-10.3); Creatinine, Serum 0.77 mg/dL (0.67-1.17); Potassium 4.1 mmol/L (3.5-5.0); eGFR CKD-EPI 107.1 (>60)
[2023-11-24] MEDS: Enoxaparin 40 MG/0.4 ML SYR SUBCUT SCH (08:58)
[2023-11-24] MEDS: Polyethylene Glycol 3350 17 GM PACKET PO SCH (09:00)
[2023-11-24] MEDS ORDERED: Polyethylene Glycol 3350 17 GM PACKET PO SCH (09:00)
[2023-11-24] MEDS ORDERED: Senna TAB 8.6 mg TAB PO SCH (09:00)
[2023-11-24] MEDS ORDERED: Enoxaparin 40 MG/0.4 ML SYR SUBCUT SCH (09:00)
[2023-11-24] MEDS: Senna TAB 8.6 mg TAB PO SCH (09:07)
[2023-11-24] MEDS: NS 0.9% 1000 ml BAG 1,000 ML IV SCH (10:28)
[2023-11-25 05:15] VITALS: BP 126/74
== END 2023-11-25 09:06 | disposition home or self-care (01) ==
LOC: MED 18:35 → SUATTDRO 18:35 → INTOOBSV 18:35
PROVIDERS: ADMIT Student in an Organized Health Care Education/Training Program; ATTEND Internal Medicine

== ENCOUNTER 2023-11-25 09:45 | Inpatient (IN) ==
[2023-11-25] MEDS ORDERED: Senna TAB 8.6 mg TAB PO PRN (12:13)
[2023-11-25] MEDS ORDERED: Polyethylene Glycol 3350 17 GM PACKET PO PRN (12:13)
[2023-11-25] MEDS ORDERED: Dextrose 50% Syringe 50 ml 25 GM/50 ML SYRINGE IV PUSH PRN (12:20)
[2023-11-26] MEDS ORDERED: Insulin GLARGINE 100 un/ml 10 ml VIAL SUBCUT SCH (09:00)
[2023-11-26] MEDS: Insulin GLARGINE 100 un/ml 10 ml VIAL SUBCUT SCH (09:05)
[2023-11-29 17:38] LABS: Glucose Confirmatory 466 mg/dL (70-100)
[2023-11-29 22:18] LABS: Glucose Confirmatory 479 mg/dL (70-100)
[2023-12-01] MEDS ORDERED: Glucose ORAL 15 GM TUBE PO PRN (22:54)
[2023-12-14 21:29] LABS: Glucose Confirmatory 416 mg/dL (70-100)
[2023-12-16 03:33] LABS: Rapid COVID-19 Molecular Undetected (Undetected)
[2023-12-16 05:17] VITALS: BP 103/72
== END 2023-12-16 09:55 | DRG 689 ==
LOC: SUATTDRO 09:45 → MED 09:45
PROVIDERS: ADMIT Internal Medicine; ATTEND Internal Medicine

== ENCOUNTER 2024-04-17 13:03 | Inpatient (IN) ==
[2024-04-17 14:07] LABS: Hematocrit 44.2 % (38-53); Hemoglobin 14.4 g/dL (13.2-16.3); Mean Corpuscular Hemoglobin 30.6 pg (27-33); Mean Corpuscular Hgb Conc 32.5 g/dL (31-36); Mean Corpuscular Volume 94.1 fL (80-97); Mean Platelet Volume 9.4 fL (7.5-11.2); Platelet Count 353 10^3/uL (150-450); Red Cell Distribution Width 13.6 % (12-17)
[2024-04-17 14:24] LABS: INR 0.97 (0.83-1.13)
[2024-04-17 14:25] LABS: Activated Partial Thrombo Time 29.4 seconds (26.0-38.0)
[2024-04-17 14:38] LABS: Albumin 4.6 g/dL (3.2-5.2); Albumin/Globulin Ratio 1.4 (1-3); Calcium 10.8 mg/dL (8.6-10.3); Creatinine, Serum 2.9 mg/dL (0.67-1.17); Globulin 3.4 g/dL (2-4); Potassium 4.8 mmol/L (3.5-5.0); Total Bilirubin 0.4 mg/dL (0.2-1.0); eGFR CKD-EPI 25.1 (>60)
[2024-04-17 14:45] LABS: ABS Basophils 0.1 10^3/uL (0.0-0.1); ABS Lymphocytes 1.1 10^3/uL (1.0-4.8); ABS Monocytes 2.1 10^3/uL (0.0-1.1); ABS Neutrophils 25.7 10^3/uL (1.5-7.6); ABS Nucleated RBC 0.01 10^3/ul; Lymphocyte % 3.8 %
[2024-04-17] MEDS: NS 0.9% 1000 ml BAG 1,000 ML IV ONE ×3 (15:00→19:38)
[2024-04-17] MEDS: Pantoprazole VIAL 40 MG VIAL IV ONE (15:07)
[2024-04-17] MEDS: Piperacillin/Tazobac 3.375 BAG 3.375 GM/100 ML BAG IV ONE (16:46)
[2024-04-17 17:39] LABS: Urine Appearance Turbid; Urine Bacteria Absent /HPF (Absent); Urine Bilirubin 2+ (Negative); Urine Blood 1+ (Negative); Urine Color Yellow; Urine Glucose 4+ (>=1000 mg/dL) (Negative); Urine Granular Casts Present /LPF (Absent); Urine Ketones 4+ (Negative); Urine Nitrite Negative (Negative); Urine Protein 1+ (>=30 mg/dL) (Negative); Urine Red Blood Cell 1+(3-5/hpf) /HPF (0-Trace); Urine Urobilinogen 2+ (Negative); Urine White Blood Cell 2+(11-20/hpf) /HPF (0-Trace); Urine pH 5.5 (5.0-8.0)
[2024-04-17] MEDS ORDERED: Dextrose 50% Syringe 50 ml 25 GM/50 ML SYRINGE IV PUSH PRN (19:25)
[2024-04-17] MEDS: KCL 20 MEQ/100 ML IVPREMIX 20 MEQ/100 ML BAG IV ONE (19:56)
[2024-04-17] MEDS ORDERED: Ondansetron 4 mg VIAL 2 MG/ML 2 ml VIAL IV PRN (20:14)
[2024-04-17] MEDS ORDERED: Acetaminophen IV 1 GM/100ML 1,000 MG/100 ML BAG IV PRN (20:16)
[2024-04-17] MEDS: Insulin Infusion 100unit/100mL 100 UNIT/100 ML BAG IV SCH ×2 (20:23→21:56)
[2024-04-17] MEDS: Heparin 5000 UNITS/ML 1 mL VIAL SUBCUT SCH (21:41)
[2024-04-17 21:59] LABS: Glucose Confirmatory 499 mg/dL (70-100)
[2024-04-17 22:14] LABS: Phosphorus 3.1 mg/dL (2.5-5.0)
[2024-04-17] MEDS ORDERED: Valproic Acid IV 100 MG/ML 5 ML VIAL (500 MG) IVPB SCH (23:00)
[2024-04-17] MEDS: levETIRAcetam IV 750 MG in NS 0.9% 100 ml BAG 100 ML IVPB SCH (23:00)
[2024-04-17] MEDS: NORMOSOL-R pH 7.4 1000 mL BAG 1,000 ML IV SCH (23:42)
[2024-04-17] MEDS: Valproic Acid IV 500 MG in NS 0.9% 100 ML IVPB SCH (23:42)
[2024-04-17] MEDS: D5W 1/2 NS 1000 ml BAG 1,000 ML IV SCH (23:56)
[2024-04-18 00:53] LABS: Calcium 9.7 mg/dL (8.6-10.3); Creatinine, Serum 2.01 mg/dL (0.67-1.17); Magnesium 2.1 mg/dL (1.9-2.7); Phosphorus 2.2 mg/dL (2.5-5.0); Potassium 4.3 mmol/L (3.5-5.0); eGFR CKD-EPI 38.9 (>60)
[2024-04-18] MEDS: Potassium Phosphate IV 15 MMOL in NS 0.9% 250 ml 250 ML IVPB ONE (01:44)
[2024-04-18 03:40] LABS: ABS Lymphocytes 1.3 10^3/uL (1.0-4.8); ABS Monocytes 1.5 10^3/uL (0.0-1.1); ABS Neutrophils 13.9 10^3/uL (1.5-7.6); Hematocrit 37.2 % (38-53); Hemoglobin 12.2 g/dL (13.2-16.3); Mean Corpuscular Hemoglobin 30.8 pg (27-33); Mean Corpuscular Hgb Conc 32.7 g/dL (31-36); Mean Corpuscular Volume 94.2 fL (80-97); Mean Platelet Volume 8.9 fL (7.5-11.2); Platelet Count 242 10^3/uL (150-450); Red Blood Count 3.95 10^6/uL (4.06-5.63); Red Cell Distribution Width 13.7 % (12-17); White Blood Count 16.8 10^3/uL (3.6-10.2)
[2024-04-18 04:10] LABS: Calcium 9.5 mg/dL (8.6-10.3); Creatinine, Serum 1.63 mg/dL (0.67-1.17); Magnesium 2.1 mg/dL (1.9-2.7); Phosphorus 2.8 mg/dL (2.5-5.0); Potassium 4.5 mmol/L (3.5-5.0); eGFR CKD-EPI 50.1 (>60)
[2024-04-18] MEDS: Insulin GLARGINE 100 un/ml 10 ml VIAL SUBCUT ONE (05:06)
[2024-04-18] MEDS: Pantoprazole VIAL 40 MG VIAL IV SCH (08:17)
[2024-04-18] MEDS: Lactated Ringers 1000 ml BAG 1,000 ML IV ONE (10:45)
[2024-04-18] MEDS: Dextrose 50% Syringe 50 ml 25 GM/50 ML SYRINGE IV PUSH PRN (20:26)
[2024-04-18 20:28] LABS: ABS Basophils 0.1 10^3/uL (0.0-0.1); ABS Monocytes 0.5 10^3/uL (0.0-1.1); ABS Neutrophils 6.7 10^3/uL (1.5-7.6); Eosinophil % 0.3 %; Hematocrit 34.2 % (38-53); Hemoglobin 11.2 g/dL (13.2-16.3); Lymphocyte % 21.7 %; Mean Corpuscular Hemoglobin 30.8 pg (27-33); Mean Corpuscular Hgb Conc 32.9 g/dL (31-36); Mean Corpuscular Volume 93.8 fL (80-97); Mean Platelet Volume 9.3 fL (7.5-11.2); Platelet Count 230 10^3/uL (150-450); Red Blood Count 3.64 10^6/uL (4.06-5.63); Red Cell Distribution Width 13.4 % (12-17); White Blood Count 9.3 10^3/uL (3.6-10.2)
[2024-04-18 20:52] LABS: C Reactive Protein 51.87 mg/L (<8.01)
[2024-04-18 20:53] LABS: Calcium 9.5 mg/dL (8.6-10.3); Creatinine, Serum 1.1 mg/dL (0.67-1.17); Magnesium 1.8 mg/dL (1.9-2.7); Phosphorus 2.3 mg/dL (2.5-5.0); Potassium 3.7 mmol/L (3.5-5.0); eGFR CKD-EPI 80.3 (>60)
[2024-04-18 20:54] LABS: Calcium 9.5 mg/dL (8.6-10.3); Creatinine, Serum 1.1 mg/dL (0.67-1.17); Magnesium 1.8 mg/dL (1.9-2.7); Phosphorus 2.3 mg/dL (2.5-5.0); Potassium 3.6 mmol/L (3.5-5.0); eGFR CKD-EPI 80.3 (>60)
[2024-04-18 21:04] LABS: TSH Ultra Thyroid Stim Horm 0.61 mcIU/mL (0.34-5.60)
[2024-04-18 21:15] LABS: Folate 17.65 ng/mL (5.90-24.80)
[2024-04-18] MEDS: Lactated Ringers 1000 ml BAG 1,000 ML IV SCH (22:12)
[2024-04-18] MEDS: D5LR 1000 ml BAG 1,000 ML IV SCH (23:13)
[2024-04-18] MEDS: Magnesium Sulfate IV 1GM/100ML 1 GM/100 ML BAG IV ONE (23:30)
[2024-04-19 04:47] LABS: ABS Monocytes 0.4 10^3/uL (0.0-1.1); ABS Neutrophils 4.2 10^3/uL (1.5-7.6); ABS Nucleated RBC 0.01 10^3/ul; Eosinophil % 0.5 %; Hematocrit 29.9 % (38-53); Hemoglobin 9.8 g/dL (13.2-16.3); Lymphocyte % 30.2 %; Mean Corpuscular Hemoglobin 31.3 pg (27-33); Mean Corpuscular Hgb Conc 32.9 g/dL (31-36); Mean Platelet Volume 9.1 fL (7.5-11.2); Nucleated Red Blood Cells % 0.2 %/100WBC (0.0-0.8); Platelet Count 188 10^3/uL (150-450); Red Blood Count 3.15 10^6/uL (4.06-5.63); Red Cell Distribution Width 13.8 % (12-17); White Blood Count 6.8 10^3/uL (3.6-10.2)
[2024-04-19 05:31] LABS: Anion Gap 10 mmol/L (2-16); Blood Urea Nitrogen 15 mg/dL (6-24); CO2 Carbon Dioxide 23 mmol/L (22-32); Calcium 8.5 mg/dL (8.6-10.3); Chloride 118 mmol/L (101-111); Creatinine, Serum 0.95 mg/dL (0.67-1.17); Glucose 591 mg/dL (70-100); Magnesium 1.8 mg/dL (1.9-2.7); Sodium 151 mmol/L (135-145); eGFR CKD-EPI 95.7 (>60)
[2024-04-19] MEDS: Magnesium Sulfate IV 1GM/100ML 1 GM/100 ML BAG IV ONE (05:57)
[2024-04-19 06:34] LABS: Phosphorus 2.6 mg/dL (2.5-5.0); Potassium Redraw 3.4 mmol/L (3.5-5.0)
[2024-04-19 08:14] LABS: .Transferrin 128 mg/dL (203-362); Total Iron Binding Capacity 179 mcg/dL (250-450)
[2024-04-19 08:29] LABS: Ferritin 66.3 ng/mL (24-336)
[2024-04-19] MEDS: KCL 20 MEQ/100 ML IVPREMIX 20 MEQ/100 ML BAG IV SCH (08:40)
[2024-04-19] MEDS: Insulin GLARGINE 100 un/ml 10 ml VIAL SUBCUT SCH (10:34)
[2024-04-19] MEDS: Heparin 5000 UNITS/ML 1 mL VIAL SUBCUT SCH (12:51)
[2024-04-19 13:02] LABS: Hematocrit 32.7 % (38-53); Hemoglobin 10.9 g/dL (13.2-16.3); Mean Corpuscular Hemoglobin 31.1 pg (27-33); Mean Corpuscular Hgb Conc 33.3 g/dL (31-36); Mean Corpuscular Volume 93.4 fL (80-97); Mean Platelet Volume 8.1 fL (7.5-11.2); Platelet Count 193 10^3/uL (150-450); Red Cell Distribution Width 13.6 % (12-17); White Blood Count 6.4 10^3/uL (3.6-10.2)
[2024-04-19 13:54] LABS: Calcium 8.9 mg/dL (8.6-10.3); Creatinine, Serum 0.93 mg/dL (0.67-1.17); Potassium 3.8 mmol/L (3.5-5.0); eGFR CKD-EPI 98.2 (>60)
[2024-04-19] MEDS: Levothyroxine 100 MCG/5 ML VIAL IV SCH (14:28)
[2024-04-20 05:38] LABS: ABS Lymphocytes 2.2 10^3/uL (1.0-4.8); ABS Monocytes 0.3 10^3/uL (0.0-1.1); ABS Neutrophils 2.3 10^3/uL (1.5-7.6); Eosinophil % 0.4 %; Hematocrit 32.1 % (38-53); Hemoglobin 10.6 g/dL (13.2-16.3); Lymphocyte % 44.8 %; Mean Corpuscular Hemoglobin 30.7 pg (27-33); Mean Corpuscular Hgb Conc 33.1 g/dL (31-36); Mean Corpuscular Volume 92.9 fL (80-97); Mean Platelet Volume 8.9 fL (7.5-11.2); Platelet Count 140 10^3/uL (150-450); Red Blood Count 3.45 10^6/uL (4.06-5.63); Red Cell Distribution Width 12.9 % (12-17)
[2024-04-20 06:26] LABS: Calcium 8.7 mg/dL (8.6-10.3); Creatinine, Serum 0.59 mg/dL (0.67-1.17); Magnesium 1.7 mg/dL (1.9-2.7); Potassium 3.6 mmol/L (3.5-5.0)
[2024-04-20] MEDS: Magnesium Sulfate 2 gm BAG 2 GM/50 ML BAG IVPB ONE (07:32)
[2024-04-20] MEDS: KCL 20 MEQ/100 ML IVPREMIX 20 MEQ/100 ML BAG IV SCH (09:04)
[2024-04-20 09:13] LABS: Venous Bicarbonate HCO3 28.4 mmol/L (24-28)
[2024-04-20] MEDS: Pantoprazole VIAL 40 MG VIAL IV SCH (09:27)
[2024-04-20] MEDS: Valproic Acid IV 750 MG in NS 0.9% 100 ml BAG 100 ML IVPB ONE (14:47)
[2024-04-21 05:21] LABS: ABS Eosinophils 0.1 10^3/uL (0.0-0.5); ABS Lymphocytes 1.8 10^3/uL (1.0-4.8); ABS Monocytes 0.3 10^3/uL (0.0-1.1); ABS Neutrophils 2.6 10^3/uL (1.5-7.6); Eosinophil % 1.9 %; Hemoglobin 10.8 g/dL (13.2-16.3); Lymphocyte % 37.6 %; Mean Corpuscular Hemoglobin 31.3 pg (27-33); Mean Corpuscular Hgb Conc 33.8 g/dL (31-36); Mean Corpuscular Volume 92.7 fL (80-97); Mean Platelet Volume 8.8 fL (7.5-11.2); Nucleated Red Blood Cells % 0.1 %/100WBC (0.0-0.8); Platelet Count 151 10^3/uL (150-450); Red Blood Count 3.45 10^6/uL (4.06-5.63); Red Cell Distribution Width 12.5 % (12-17); White Blood Count 4.8 10^3/uL (3.6-10.2)
[2024-04-21 06:00] LABS: Calcium 8.6 mg/dL (8.6-10.3); Creatinine, Serum 0.53 mg/dL (0.67-1.17); Magnesium 1.7 mg/dL (1.9-2.7); Phosphorus 3.4 mg/dL (2.5-5.0); Potassium 3.5 mmol/L (3.5-5.0); eGFR CKD-EPI 119.8 (>60)
[2024-04-21] MEDS: Valproic Acid IV 750 MG in NS 0.9% 100 ml BAG 100 ML IVPB SCH (09:26)
[2024-04-21] MEDS: Lansoprazole SUSP ORALSYR 3 MG/ML G TUBE SCH (11:19)
[2024-04-21 16:00] LABS: Anion Gap 5 mmol/L (2-16); Blood Urea Nitrogen 7 mg/dL (6-24); CO2 Carbon Dioxide 29 mmol/L (22-32); Calcium 8.6 mg/dL (8.6-10.3); Chloride 109 mmol/L (101-111); Creatinine, Serum 0.56 mg/dL (0.67-1.17); Glucose 76 mg/dL (70-100); Magnesium 1.9 mg/dL (1.9-2.7); Sodium 143 mmol/L (135-145); eGFR CKD-EPI 117.9 (>60)
[2024-04-21 17:36] LABS: Phosphorus 4.4 mg/dL (2.5-5.0)
[2024-04-22 05:47] LABS: Hematocrit 33.8 % (38-53); Hemoglobin 11.6 g/dL (13.2-16.3); Mean Corpuscular Hemoglobin 31.9 pg (27-33); Mean Corpuscular Hgb Conc 34.2 g/dL (31-36); Mean Corpuscular Volume 93.4 fL (80-97); Red Blood Count 3.62 10^6/uL (4.06-5.63); Red Cell Distribution Width 12.8 % (12-17); White Blood Count 4.9 10^3/uL (3.6-10.2)
[2024-04-22 06:05] LABS: Anion Gap 8 mmol/L (2-16); Blood Urea Nitrogen 11 mg/dL (6-24); CO2 Carbon Dioxide 27 mmol/L (22-32); Calcium 8.3 mg/dL (8.6-10.3); Chloride 105 mmol/L (101-111); Creatinine, Serum 0.57 mg/dL (0.67-1.17); Glucose 163 mg/dL (70-100); Sodium 140 mmol/L (135-145); eGFR CKD-EPI 117.2 (>60)
[2024-04-22 06:58] LABS: ABS Eosinophils 0.2 10^3/uL (0.0-0.5); ABS Lymphocytes 1.8 10^3/uL (1.0-4.8); ABS Monocytes 0.3 10^3/uL (0.0-1.1); ABS Neutrophils 2.6 10^3/uL (1.5-7.6); ABS Nucleated RBC 0.01 10^3/ul; Eosinophil % 3.4 %; Lymphocyte % 37.2 %; Mean Platelet Volume 9.8 fL (7.5-11.2); Nucleated Red Blood Cells % 0.1 %/100WBC (0.0-0.8); Platelet Count 72 10^3/uL (150-450)
[2024-04-23 06:12] LABS: ABS Eosinophils 0.1 10^3/uL (0.0-0.5); ABS Lymphocytes 1.5 10^3/uL (1.0-4.8); ABS Monocytes 0.4 10^3/uL (0.0-1.1); ABS Neutrophils 3.4 10^3/uL (1.5-7.6); Eosinophil % 2.1 %; Hematocrit 34.4 % (38-53); Hemoglobin 11.6 g/dL (13.2-16.3); Lymphocyte % 27.3 %; Mean Corpuscular Hemoglobin 31.3 pg (27-33); Mean Corpuscular Hgb Conc 33.8 g/dL (31-36); Mean Corpuscular Volume 92.4 fL (80-97); Mean Platelet Volume 9.6 fL (7.5-11.2); Nucleated Red Blood Cells % 0.1 %/100WBC (0.0-0.8); Platelet Count 164 10^3/uL (150-450); Red Blood Count 3.72 10^6/uL (4.06-5.63); Red Cell Distribution Width 12.4 % (12-17); White Blood Count 5.4 10^3/uL (3.6-10.2)
[2024-04-23 06:28] LABS: Calcium 8.3 mg/dL (8.6-10.3); Creatinine, Serum 0.61 mg/dL (0.67-1.17); Potassium 4.2 mmol/L (3.5-5.0); eGFR CKD-EPI 114.9 (>60)
[2024-04-23] MEDS: levETIRAcetam 1000MG IVPREMIX 1,000 MG/100 ML BAG IVPB SCH (10:31)
[2024-04-24 13:52] VITALS: BP 109/68
[2024-04-24] MEDS ORDERED: Morphine ORAL CONCENTRATE 5 MG/0.25 ML ORAL.SYRIN SL PRN ×2 (17:01→17:14)
[2024-04-24] MEDS ORDERED: Morphine ORAL.SOLN 10 mg 2 mg/ml UDC 5 ml (10 mg) PO PRN (17:13)
[2024-04-24] MEDS ORDERED: Atropine 1% (ORAL/SL) 15 ML BTL SL PRN (17:15)
[2024-04-24] MEDS ORDERED: Glycerin ADULT 2.4 gm SUPP PR PRN (17:16)
== END 2024-04-26 08:38 | DRG 420 ==
LOC: ED 13:03 → MEDTELE 20:14 → SUATTDRO 20:14 → EDHOLD 20:14 → ICU 22:57 → MEDTELE 04-21 16:49
PROVIDERS: ADMIT Student in an Organized Health Care Education/Training Program; ATTEND Internal Medicine